=== PATIENT | female | born 1950 | race Caucasian/White ===

== ENCOUNTER → 2024-02-05 15:10 | Outpatient (REF) | payer MEDICARE, OTHER, SELFPAY | LOC: HWRAD 15:10 | PROVIDERS: ATTENDING PHYSICIAN Student in an Organized Health Care Education/Training Program; FAMILY PHYSICIAN Internal Medicine | DX: M25.612 Stiffness of left shoulder, not elsewhere classified (principal) | CPT/HCPCS: 73030 ==

== ENCOUNTER 2024-07-07 21:53 | Emergency (ER) | payer MEDICARE, OTHER, SELFPAY ==
[2024-07-07] VITALS (9 sets, daily range): BP systolic 122–154; BP diastolic 67–106; BMI 31.8
--- NOTE | 2024-07-07 22:56 | ED.MUSCINJ ---
HPI-Injury
<DEREK Steele (Lenka) - Last Filed: 07/08/24 01:11>
General
Chief Complaint: Musculo-Skeletal Complaint
Source: patient and spouse
Exam Limitations: clinical condition (cannot manipulate ankle d/t injury)
Time Seen by Provider: 07/07/24 22:29
Nursing documentation reviewed up to this point in time: agreed with
History of Present Illness-Injury
Is this injury a work related problem?: No
Is pt an associate of [facility]?: No
Initial Injury comments:
Pt is a 74yo female with PMHx of TIA (23) who presents to the ED with left ankle injury x 1 hour. Around 2200 tonight pt was walking down steps to her backyard and missed the last step. She felt her left ankle roll and ended up on the ground.
Denies hitting her head or injuring any other body part. Denies pain or tenderness elsewhere aside from her left ankle. No past ankle, knee, or hip injuries or surgeries. She has had general anesthesia in the past with no adverse reactions. She
states she is able to feel her toes and can wiggle them, but it causes her extreme pain.
Past History
<DEREK Steele (Lenka) - Last Filed: 07/08/24 01:11>
Past History
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
ED Past Surgical History: Gynecological (R ovary removal, breast lumpectomy, D/C for 3 miscarriages, bartholins cyst) and Other (hernia repair)
Social History
Tobacco: Non-smoker
Alcohol: Occasional
Drug: None
Personal:
Living: with family
Family History
Family History: Other (noncontributory)
Musculoskeletal Injury Exam
<DEREK Steele (Lenka) - Last Filed: 07/08/24 01:11>
Musculoskeletal Injury Exam
Left Ankle:
Pain with Movement?: Severe
Tender to palpation?: Severe
Soft tissue swelling?: Severe
External deformity and angulation?: Moderate
Joint effusion?: Other
Contusion?: Mild
Hematoma-local bleeding into tissue?: Other
Strain- Sprain- Tear (Connective tissue injury)?: Other
Crepitus with movement?: No
Joint instability?: Yes
Malalignment/deformity?: Yes
Range of motion: Limited (unable to do ROM 2/2 pain)
Distal skin color and temperature: normal-warm & good color
Capillary Refill: normal (in all 5 toes)
Normal distal neurovascular exam?: Yes
Phy Exam
<ST Steele ([place]ka)[place] - Last Filed: 07/08/24 01:11>
General Physical Exam
General Presentation: well appearing and no apparent distress
General age: appears stated age
General Skin: warm and dry
General Habitus: normal
General Mental: alert
Cardiovascular Exam
Cardiovascular Exam: regular rate/rhythm, no edema and normal peripheral pulses
Pulmonary Exam
Pulmonary Exam: lungs clear, no respiratory distress, no rales, no rhonchi, no wheezing and no cough
Musculoskeletal Exam
Musculoskeletal Exam: edema (L ankle)
Injury Course
<ST Steele ([place] - Last Filed: 07/08/24 01:11>
Orders/Labs/Results
Orders:
Orders
07/07/24 21:59
Ankle, left 3 view CR [CR Ankle - Left Min 3 Views ] Urgent
Comment:
Reason For Exam: fall, pain, swelling
07/07/24 23:05
Propofol [Diprivan] 20 ml .ROUTE .STK-MED
07/07/24 23:24
Ankle, left 2 view CR [CR Ankle - Left 2 Views] Stat
Comment:
Reason For Exam: post reduction
07/07/24 23:59
Acetaminophen [Tylenol] 1,000 mg .ROUTE .STK-MED ONE
07/08/24 00:02
Acetaminophen [Tylenol] 1,000 mg PO NOW STA
<Bne Colon DO - Last Filed: 07/07/24 23:47>
Orders/Labs/Results
Orders:
Orders
07/07/24 21:59
Ankle, left 3 view CR [CR Ankle - Left Min 3 Views ] Urgent
Comment:
Reason For Exam: fall, pain, swelling
07/07/24 23:05
Propofol [Diprivan] 20 ml .ROUTE .STK-MED
07/07/24 23:24
Ankle, left 2 view CR [CR Ankle - Left 2 Views] Stat
Comment:
Reason For Exam: post reduction
07/07/24 23:59
Acetaminophen [Tylenol] 1,000 mg .ROUTE .STK-MED ONE
07/08/24 00:02
Acetaminophen [Tylenol] 1,000 mg PO NOW STA
Procedures
<DO Kim Kelly Last Filed: 07/07/24 23:47>
Moderate Sedation
ASA Risk Score: Class I
Chart and allergies reviewed: Yes
Consent for anesthesia obtained: Yes
Time out completed (validating right patient & procedure): Yes
Moderate Sedation Start Time(when first medication is given): 23:20
History of difficult intubation: No
Airway free of obstruction: Yes
Patient has a gag reflex: Yes
Patient is able to open mouth: Yes
Patient has no dentures: Yes
Patient has no loose teeth: Yes
Medication administered by Provider during Moderate Sedation: IV Propofol (mg)
Total dose administered: 60
Time drug administered: 23:22
Moderate Sedation Procedure End Time: 23:37
Comment: Patient tolerated procedure well with no immediate adverse effects.
Splint Check
Splint checked by provider?: Yes
Circulation/Movement/Sensation post splint application: brisk cap refill, full sensation, pulses intact and pain sensation
Joint/Fracture Reduction
Left Ankle:
Indication for procedure:: Trimalleolar fracture
Procedure completed by: Myself
Consent form signed: Yes
Joint reduced: with anesthesia sedation
Anesthesia/sedation: Moderate sedation
Injury was: closed
Further treatement: needs further treatment
Post reduction exam: stable
Capillary Refill: normal
Normal distal neurovascular exam?: Yes
<ST Steele ([place] - Last Filed: 07/08/24 01:11>
MDM/Problems Addressed
Differential Diagnosis Includes:
XR LEFT ANKLE (3 view)
FINDINGS:
Bones: Trimalleolar ankle fracture with displaced fracture fragments at all sites. Anterior subluxation of the distal tibia. Moderate calcaneal enthesopathy.
Ankle mortise: The ankle mortise is slightly widened.
Soft tissue: Moderate soft tissue swelling about the ankle. Probable tibiotalar joint effusions.
IMPRESSION:
Trimalleolar ankle fracture.
Electronically signed by Memo Alanis, 07/07/2024 10:15 PM
<ST Steele ([place] - Last Filed: 07/08/24 01:11>
*Critical Care Note
Total Time (30-74mins, 75-104mins- exclusive of procedures): Not Applicable
<Ben Colon DO - Last Filed: 07/07/24 23:47>
*Radiology
Radiology exam reviewed: radiology read reviewed (Prereduction report read. Postreduction film looks good. The bones have been approximated nicely. Good distal pulses.)
<Brittnee Cortez) DEREK Eduardo - Last Filed: 07/08/24 01:11>
Update Note
Update Note:
07/08 0010 - post-reduction, pt in no respiratory distress, resting comfortable. Pain is 0/10 at rest and 2/10 with movement. No chest pain or SOB. Use of crutches explained. Questions answered.
ED Attending Note
<ST Steele ([place] - Last Filed: 07/08/24 01:11>
-
Portions of this chart may have been created with voice recognition software.� Occasional wrong word or��sound alike� substitutions may have occurred due to the inherent limitations of voice recognition software.
<Ben Colon, - Last Filed: 07/07/24 23:47>
ED Attending Note
Patient seen and examined by attending physician: Yes
I performed the substantive portion of visit, reviewed & personally made and approve the management plan that is documented in note by myself or JEREMY.: Yes
ED Attending Note:
Pleasant 74-year-old female with left ankle trimalleolar fracture. She has a brand-new deck at her home. She is walking down the steps, and missed the final step. Denies head injury or loss of consciousness. This happened approximately 1 hour
prior to arrival. She states that she rolled her left ankle. Patient is not allergic to eggs or soybean. Patient was seen in conjunction with the PA student. I have reviewed and agree with the history and treatment plan presented. On my
independent physical exam, patient is awake, alert, and oriented x3, no acute distress. Obviously deformed left ankle. There is some mottling. Good capillary refill.
See procedure note for moderate sedation with IV propofol and closed reduction of left trimalleolar fracture.
Patient was splinted and given crutches. Dr. Zackary Giraldo, orthopedic surgery was notified via [place] text with pre and post pictures. Patient will follow-up in his office.
Discharge Plan
Departure
Patient Disposition: Home (Routine Discharge)
Date of Disposition: 07/08/24
Time of Disposition: 00:45
Patient with high blood pressure during this ER visit?: Yes
Condition: Fair
Discharge Problem:
Closed displaced trimalleolar fracture of left ankle
Instructions: How to Use Crutches, Ankle Fracture (DC), Using Cold for Pain
Prescriptions:
New
oxycodone-acetaminophen [Percocet] 5-325 mg tablet
1 tab PO Q4HPRN PRN (Reason: pain) Qty: 10 0RF
No Action
atorvastatin 20 mg Tablet
20 mg PO QPM Qty: 30 1RF
aspirin 81 mg Tablet,Chewable
81 mg PO DAILY Qty: 100 0RF
clopidogrel 75 mg Tablet
75 mg PO DAILY Qty: 30 2RF
Referrals:
Zackary Giraldo MD [Active] - Call in 1-3 days for appt
Jeannine Brantley MD [Family Provider] -
Activity Restrictions/Additional Instructions:
Your prescriptions were sent electronically to the pharmacy that you specified.
It was a pleasure meeting you and taking part in your care. We hope for your continued healing and wellness.
Please read discharge instructions in their entirety. However, they are for general education and may not describe your exact diagnosis at discharge. Information on your ER visit and medical conditions were discussed with you along with appropriate
follow up information...
If indicated, please take your medications as instructed and indicated on discharge paperwork.
Please schedule a follow up appointment as directed. Call to schedule an appointment
Please return to the emergency department with ANY change in, persisting, or worsening of symptoms. If any of your symptoms do not improve, or persist, or become more severe within 6-12 hours, please return to the emergency department for further
care.
Please return to the emergency department if you develop a headache, neck pain/stiffness, fever greater than 100.4F, chest pain, shortness of breath, persistent nausea, vomiting, slurred speech, difficulty walking, numbness/tingling, weakness, signs
of infection or any other symptoms that are worrisome to you.
If you have any questions or concerns please do not hesitate to call the Hospital at or E-mail me directly at [email or web address]
Interventions
Interventions:
*Risk Screen - Suicide Last Done: 07/07/24 21:56
*General Assessment Last Done: 07/07/24 21:56
*Neglect/Abuse Screening Last Done: 07/07/24 21:56
ED- Fall Risk Assessment Last Done: 07/08/24 01:00
*ED COVID-19 Vaccine History Last Done: 07/08/24 01:00
*Nursing Disposition Last Done: 07/08/24 01:00
ED-Musculoskeletal Assessment Last Done: 07/07/24 23:13
Discharge Date and Time
Discharge Date/Time: 07/08/24 01:02
Print Language: UKRAINIAN
[2024-07-08] MEDS: TYLENOL 1000 MG PO (00:03)
[2024-07-08 00:05] VITALS: BP 143/82
[2024-07-08 00:10] VITALS: BP 142/82
[2024-07-08 00:15] VITALS: BP 135/69
[2024-07-08 00:20] VITALS: BP 132/73
== END 2024-07-08 01:02 | disposition home or self-care (01) ==
LOC: EMR 21:53
PROVIDERS: EMERGENCY PHYSICIAN Student in an Organized Health Care Education/Training Program; FAMILY PHYSICIAN Internal Medicine
DX: S82.852A Displaced trimalleolar fracture of left lower leg, initial encounter for closed fracture (principal); W10.9XXA Fall (on) (from) unspecified stairs and steps, initial encounter; R03.0 Elevated blood-pressure reading, without diagnosis of hypertension
CPT/HCPCS: 27818; 99285; 99152; 73600; 73610

== ENCOUNTER → 2024-07-08 14:57 | Outpatient (REF) | payer MEDICARE, OTHER, SELFPAY ==
[2024-07-08 15:42] LABS: % Basophils 0.4 % (0-2); % Eosinophils 0.3 % (0-6); % Immature Granulocytes 0.3 % (0-0.5); % Lymphocytes 8.2 % (20.5-51.1); % Monocytes 7.8 % (1.7-9.3); Absolute Lymphocytes 0.9 10^3/uL (1.2-3.4); Absolute Monocytes 0.9 10^3/uL (0.1-0.6); Absolute Neutrophils 9.4 10^3/uL (1.4-6.5); Hematocrit 38.7 % (37.0-47.0); Mean Corp Hgb Conc. 33.6 g/dL (33.0-37.0); Mean Corpuscular Volume 98.2 fL (81.0-99.0); Mean Platelet Volume 10.8 fL (7.4-10.4); Nucleated Red Blood Cells % 0 %; Platelet Count 241 10^3/uL (130-400); Red Blood Cell Count 3.94 10^6/uL (4.20-5.40); Red Cell Dist. Width 13.2 % (11.5-14.5); White Blood Cell Count 11.3 10^3/uL (4.8-10.8)
[2024-07-08 16:06] LABS: Blood Urea Nitrogen 10 mg/dl (7-17); Calcium 10.1 mg/dl (8.4-10.2); Carbon Dioxide 29 mmol/L (22-30); Chloride 103 mmol/L (98-107); Glucose 109 mg/dl (70-99); Potassium 4.1 mmol/L (3.5-5.1); Sodium 139 mmol/L (135-145); eGFR > 60.00
== END ==
LOC: REG 14:57
PROVIDERS: ATTENDING PHYSICIAN Student in an Organized Health Care Education/Training Program; FAMILY PHYSICIAN Internal Medicine
DX: Z01.818 Encounter for other preprocedural examination (principal)
CPT/HCPCS: 36415; 80048; 85025

== ENCOUNTER → 2024-07-25 08:42 | Outpatient (REF) | payer MEDICARE, OTHER, SELFPAY | LOC: HWRAD 08:42 | PROVIDERS: ATTENDING PHYSICIAN Internal Medicine | DX: R22.1 Localized swelling, mass and lump, neck (principal) | CPT/HCPCS: 76536 ==

== ENCOUNTER → 2024-10-15 14:45 | Outpatient (REF) | payer MEDICARE, OTHER, SELFPAY | LOC: HWWDC 14:45 | PROVIDERS: ATTENDING PHYSICIAN Internal Medicine | DX: Z12.31 Encounter for screening mammogram for malignant neoplasm of breast (principal); Z78.0 Asymptomatic menopausal state | CPT/HCPCS: 77063; 77067; 77080 ==

== ENCOUNTER → 2024-10-31 06:19 | Day surgery (SDC) | payer MEDICARE, OTHER, SELFPAY | LOC: GI 06:19 | PROVIDERS: ATTENDING PHYSICIAN Internal Medicine Gastroenterology | DX: Z12.11 Encounter for screening for malignant neoplasm of colon (principal); Z86.0101 Personal history of adenomatous and serrated colon polyps; K57.30 Diverticulosis of large intestine without perforation or abscess without bleeding | CPT/HCPCS: G0105 ==

== ENCOUNTER → 2025-01-16 17:07 | Outpatient (REF) | payer MEDICARE, OTHER, SELFPAY | LOC: RAD 17:07 | PROVIDERS: ATTENDING PHYSICIAN Internal Medicine | DX: S99.922A Unspecified injury of left foot, initial encounter (principal); M79.672 Pain in left foot; M25.542 Pain in joints of left hand | CPT/HCPCS: 73130; 73630 ==

== ENCOUNTER → 2025-03-18 12:59 | Outpatient (REF) | payer MEDICARE, OTHER, SELFPAY | LOC: RAD 12:59 | PROVIDERS: ATTENDING PHYSICIAN Nurse Practitioner Family | DX: R10.32 Left lower quadrant pain (principal); R19.7 Diarrhea, unspecified | CPT/HCPCS: 74177; Q9967 ==